=== PATIENT | female | born 1975 | race Caucasian/White ===

== ENCOUNTER 2020-04-17 00:42 | Emergency (ER) | payer OTHER ==
[~2020-04-17] VITALS: Ht 162.6 cm; Wt 68.0 kg
[2020-04-17 01:42] LABS: ABSOLUTE NEUTROPHILS 5.2 thou/uL (1.4-8.2); BASOPHILS 0.8 % (0.0-2.0); EOSINOPHILS 1.2 % (0.0-3.0); HEMATOCRIT 26.1 % (37.0-47.0); HEMOGLOBIN 7.8 gm/dL (12.0-15.0); LYMPHOCYTES 24.1 % (24.0-44.0); MCH 18.9 pg (26.0-34.0); MCHC 29.7 g/dL (28.0-37.0); MCV 63.5 fL (80.0-100.0); MONOCYTES 6.2 % (1.0-8.0); PLATELET COUNT 336 thou/uL (150-400); POLYS 67.7 % (36.0-66.0); RBC 4.11 mil/uL (4.20-5.00); RDW 21.4 % (10.5-14.5); WBC 7.7 thou/uL (4.0-11.0)
[2020-04-17 01:47] LABS: CALCIUM 8.4 mg/dL (8.5-10.1); MAGNESIUM 2.4 mg/dL (1.8-2.4); POTASSIUM 4.1 mmol/L (3.5-5.1)
[2020-04-17 02:02] LABS: BE(vivo) -5.3 mmol/L (-2 to +3); HCO3 19.5 mmol/L (22.0-26.0); PCO2 35.3 mmHg (35.0-45.0); PO2 73.5 mmHg (80.0-100.0); pH 7.361 (7.360-7.450); sO2 94.4 % (92.0-98.0)
[2020-04-17 02:15] LABS: SALICYLATE < 2.8 mg/dL (2.8-20.0)
[2020-04-17 02:49] LABS: AMP/METHAMP Negative (Negative); BARBITURATES Negative (Negative); BENZODIAZEPINES Negative (Negative); COCAINE Negative (Negative); METHADONE Negative (Negative); OPIATES Negative (Negative); PCP Negative (Negative)
[2020-04-17 02:53] LABS: ANISOCYTOSIS 2+; HYPOCHROMASIA 3+; MICROCYTES 2+; POLYCHROMASIA 1+
[2020-04-17 05:42] VITALS: BP 107/60
--- NOTE | 2020-04-18 07:13 | EKG ---
[facility] [place] [address] ELECTROCARDIOGRAM REPORT Name: LADI PELAEZ Room #: DEP [facility]#: [id number] Admission: 04/17/20 Attend Phys: Discharge: 04/17/20 Date of : 75 Report #: [id number] THIS REPORT FOR: cc: NO FAMILY PHYSICIAN or PCP NO FAMILY PHYSICIAN or PCP Jack Khalil MD [facility] ~ THIS REPORT FOR: //name// [facility] ED Test Date: 2020-04-17 Test Time: 02:18:29 Pat Name: LADI SKINNERDepartment: Room: Gender: F [employer] Machine Tender: dede joyner : 1975 Requested By: Thomas Lopez Order Number: [id number] MD: Jack Khalil Measurements Intervals [place] Rate: 70 P: 40 KS: 57 QRS: 34 QRSD: 80 T: 35 QT: 395 QTc: 427 Interpretive Statements Sinus rhythm Short [place] interval No previous ECG available for comparison Electronically Signed On 04-18-2020 7:13:12 [employer] by Jack Khalil [email or web address] <ELECTRONICALLY SIGNED> By: Jack Khalil MD, FACC [id number] Jack Khalil MD, FAC /EPI
== END 2020-04-17 07:28 | disposition home or self-care (01) ==
LOC: ER 00:42
PROVIDERS: Emergency Medicine
DX: F10.129 Alcohol abuse with intoxication, unspecified (principal); Y90.5 Blood alcohol level of 100-119 mg/100 ml